=== PATIENT | female | born 1960 | race African-American/Black ===

== ENCOUNTER 2021-10-22 08:21 | Day surgery (SDC) | payer OTHER, BC ==
[2021-10-21 13:23] VITALS: BMI 34.8
[2021-10-22] MEDS ORDERED: PROPOFOL 20 ML ONE (09:40)
[2021-10-22 10:20] VITALS: BP 117/79; PULSE 67; TEMP 98.1
== END 2021-10-22 11:04 | disposition home or self-care (01) ==
LOC: FASU-ENDO 08:21
PROVIDERS: ATTEND Internal Medicine Gastroenterology
PROC: 0DBL8ZX Excision of Transverse Colon, Via Natural or Artificial Opening Endoscopic, Diagnostic (ICD-10-PCS; principal; 2021-10-22 09:35)
DX: Z12.11 Encounter for screening for malignant neoplasm of colon (principal); D12.3 Benign neoplasm of transverse colon